=== PATIENT | female | born 1965 | race Asian ===

== ENCOUNTER 2016-10-30 17:34 | Emergency (ER) | payer BC ==
[~2016-10-30] VITALS: Ht 162.6 cm; Wt 74.9 kg
[~2016-10-30 17:34] MED LIST: ALBUAER2 INH; OXYC-57 PO; REVIEWED
[2016-10-30 17:36] VITALS: TEMP 36.6; Ht 162.6 cm; Wt 74.9 kg
--- NOTE | 2016-10-30 19:15 | EMERGENCY ROOM VISIT NOTE ---
History Report prepared by Michael: Ezra Rodriguez Under the Supervision of: Dr. Santo Urias M.D. First contact with patient: 18:59 Chief Complaint: GI ASSESSMENT Stated Complaint: GALLBLADDER PAIN Nursing Triage Summary: Pt reports pain in epigastric pain. Nausea since yesterday. Saw PCP today and had labwork for possible nisha. Similar sx approx 1 month ago. History of Present Illness The patient is a 51 year old female who presents to the Emergency Room with complaints of intermittent abdominal pain beginning yesterday. She notes she had abdominal pain yesterday and had dark colored urine. She called her PCP who referred her to the ER. She is not currently in any pain. She notes having similar symptoms 1 month ago along with elevated liver values. She tested negative for hepatitis at that time. She states she recently had an US which showed a lesion on her liver and the presence of gallstone. She admits to a history of asthma. Source of History: patient Onset: yesterday Position: abdomen Quality: other (abdominal pain) Timing: intermittent Associated Symptoms: + urinary symptoms (dark colored urine) Review of Systems See HPI for pertinent positives & negatives. A total of 10 systems reviewed and were otherwise negative. Past Medical & Surgical Medical Problems: (1) History of gallstones Family History No pertinent family history stated. Social History Smoking Status: Never Smoker Occupation Status: employed Current/Historical Medications Scheduled Oxycodone/Acetaminophen 5MG/325MG (Percocet 5MG/325MG), 1-2 TAB PO Q4-6HR PRN Miscellaneous Medications Albuterol (Ventolin), 2 PUFFS INH [Reviewed 12/16/07] Allergies Coded Allergies: No Known Allergies (Unverified Allergy, Mild, 03/28/07) Physical Exam Vital Signs Date Time Temp Pulse Resp B/P Pulse Ox O2 Delivery O2 Flow Rate FiO2 10/30/16 19:27 71 18 136/98 100 Room Air 10/30/16 17:36 36.6 81 18 140/82 100 Room Air Physical Exam CONSTITUTIONAL: Patient is in no acute distress. HEENT: No icterus, moist mucous membranes NECK: No meningismus, trachea is midline. CARDIOVASCULAR: Regular rate, normal perfusion RESPIRATORY: Unlabored breathing. Clear to auscultation. GASTROINTESTINAL: Non-tender GENITOURINARY: No flank tenderness MUSCULOSKELETAL: Full range of motion NEUROLOGIC: No acute gross focal deficits. PSYCHIATRIC: Normal affect SKIN: Normal for ethnicity. Medical Decision & Procedures ED Course 1902: Past medical records reviewed. The patient was evaluated in room A2. A complete history and physical examination was performed. 1930: Upon reexamination the patient is hemodynamically stable. I discussed results and treatment plan with the patient. She verbalizes agreement and understanding. The patient is ready for discharge. Medical Decision 51-year-old presents to the emergency department after phone call from her primary doctor regarding some testing results. Patient notes a history of intermittent epigastric pain mildly elevated LFTs and gallstones. She notes she has already had an ultrasound and a CAT scan. She emphasized she presently has no symptoms only came here the prompting of her primary care doctor. We discussed the pros and cons additional testing in the emergency room and in the end agreed that outpatient follow-up with general surgery is advised of this time. She denied further testing the emergency department and agrees to return for any worsening or worrisome symptoms. I requested case management help patient to facilitate follow-up with general surgery. Impression Primary Impression: Gallstones Scribe Attestation The scribe's documentation has been prepared under my direction and personally reviewed by me in its entirety. I confirm that the note above accurately reflects all work, treatment, procedures, and medical decision making performed by me. Departure Information Dispostion Home / Self-Care Referrals No Doctor, Assigned (PCP) Patient Instructions ED Epigastric Pain [facility], Gallstones, My [facility] Additional Instructions Follow-up with general surgeon. Return to ED for worsening or worrisome symptoms.
[2016-10-30 19:27] VITALS: BP 136/98; PULSE 71; O2SAT 100
[2016-11-08] MEDS ORDERED: CETI5TAB5 PO (13:58)
[2016-11-08] MEDS ORDERED: SYMIN160 INH (13:58)
[2016-11-08] MEDS ORDERED: PRLSR20 PO (13:58)
[2016-11-08] MEDS ORDERED: MONT1TAB3 PO (13:58)
[2016-11-16] MEDS ORDERED: OXYC-57 PO (10:36)
== END 2016-10-30 19:28 | disposition home or self-care (01) ==
LOC: C.EDB 17:34 → C.EDA 19:28
DX: K80.20 Calculus of gallbladder without cholecystitis without obstruction (principal); J45.909 Unspecified asthma, uncomplicated

== ENCOUNTER 2016-11-16 06:42 | Day surgery (SDC) | payer BC ==
[2016-11-08 13:59] VITALS: BMI 28.0
[~2016-11-16] VITALS: Ht 162.6 cm; Wt 73.6 kg
[~2016-11-16 06:42] MED LIST changes: +CEFAZOLIN 2000 MG/60 ML D5W IV SCH; +CETI5TAB5 PO; +LACTATED RINGER'S 1000ML 1,000 ML IV SCH; +MONT1TAB3 PO; -OXYC-57 PO; +PRLSR20 PO; -REVIEWED; +SYMIN160 INH
[2016-11-16] MEDS ORDERED: ACET-1256 PO (07:17)
[2016-11-16 07:18] VITALS: BP 136/81; PULSE 60; TEMP 36.7; O2SAT 100; Ht 162.6 cm; Wt 73.6 kg
[2016-11-16] MEDS ORDERED: SUCCINYLCHOLINE CHLORIDE 20 MG/ML 10 ML VIAL IV ONE (07:35)
[2016-11-16] MEDS ORDERED: ONDANSETRON INJ 2 MG/ML 2 ML VIAL ONE ×2 (07:35→09:03)
[2016-11-16] MEDS ORDERED: DEXAMETHASONE SOD INJ 4 MG/ML VIAL ONE ×2 (07:35→09:04)
[2016-11-16] MEDS ORDERED: GLYCOPYRROLATE INJ 0.2 MG/ML VIAL ONE (07:35)
[2016-11-16] MEDS ORDERED: EpHEDrine SULFATE INJ 50 MG/ML AMP ONE (07:35)
[2016-11-16] MEDS ORDERED: LIDOCAINE HCL 2% 2 ML VIAL (20MG/ML) ONE ×2 (07:35→09:03)
[2016-11-16] MEDS ORDERED: PHENYLEPHRINE HCL INJ 10 MG/ML VIAL ONE (07:35)
[2016-11-16] MEDS ORDERED: NEOSTIGMINE METHYLSULFATE 5 MG/5 ML SYR ONE (07:35)
[2016-11-16] MEDS ORDERED: PROPOFOL IV EMULSION 10 MG/ML 20 ML VIAL IV ONE ×2 (07:35→09:03)
[2016-11-16] MEDS ORDERED: FENTANYL CITRATE INJ 50 MCG/1 ML 2 ML VIAL ONE ×2 (07:35→09:04)
[2016-11-16] MEDS ORDERED: ROCURONIUM BROMIDE 10 MG/ML 5 ML VIAL ONE (07:35)
[2016-11-16] MEDS ORDERED: MIDAZOLAM HCL 1 MG/ML 2ML VIAL ONE (07:36)
[2016-11-16] MEDS ORDERED: ACETAMINOPHEN 1000 MG/100 ML IV IV ONE (07:42)
--- NOTE | 2016-11-16 08:27 | History & Physical Bridge Note ---
H&P Re-Evaluation Bridge Note: I have examined the patient, reviewed the History & Physical and in the interval since the performance of the History & Physical I have noted the following changes of clinical significance: pt has some RUQ pain yesterday, now pt has no abdominal pain, otherwise No changes noted
[2016-11-16] MEDS ORDERED: FLUMAZENIL 0.1 MG/1 ML 10 ML VIAL IV PRN (09:15)
[2016-11-16] MEDS ORDERED: MoRPHine SULFATE 10 MG/ML CARP/VIAL IV PRN (09:15)
[2016-11-16] MEDS ORDERED: MEPERIDINE HCL 25 MG/ML CARP IV PRN (09:15)
[2016-11-16] MEDS ORDERED: NALOXONE HCL 0.4 MG/1 ML VIAL/CARP IV PRN (09:15)
[2016-11-16] MEDS ORDERED: ONDANSETRON INJ 2 MG/ML 2 ML VIAL IV PRN (09:15)
[2016-11-16] MEDS ORDERED: LABETALOL HCL IV 5 MG/ML 20ML IV PRN (09:15)
[2016-11-16] MEDS ORDERED: EpHEDrine SULFATE INJ 50 MG/ML AMP IV PRN (09:15)
[2016-11-16] MEDS ORDERED: PHENYLEPHRINE 100MCG/ML 5ML SYR IV PRN (09:15)
[2016-11-16] MEDS ORDERED: ATROPINE SULFATE 0.1 MG/ML 5ML SYR IV PRN (09:15)
[2016-11-16] MEDS ORDERED: HYDROmorphone INJ 1 MG/ML SYR IV PRN (09:15)
[2016-11-16] MEDS ORDERED: MIX: LIDOCAINE 1% + MARCAINE 0.5% (50:50) INJ ONE (10:11)
[2016-11-16] MEDS ORDERED: BACITRACIN ZINC OINT TOP ONE (10:11)
--- NOTE | 2016-11-16 10:34 | [facility] Post Operative Brief Note ---
Immediate Operative Summary Operative Date Nov 16, 2016. Pre-Operative Diagnosis Cholecystitis, cholelithiasis Post-Operative Diagnosis Acute and Chronic Cholecystitis, Cholelithiasis Procedure(s) Performed Laparoscopic cholecystectomy Surgeon Dr. Harley Heart Specialist Surgeon(s) none Estimated Blood Loss 20 cc Findings acute cholecystitis, cholelithiasis Fluids (cc crystalloids) 1000ml Specimens A: gallbladder and contents Drains none Anesthesia general Complication(s) None Disposition Recovery Room / PACU
[2016-11-16] MEDS ORDERED: OXYC-57 PO (10:36)
--- NOTE | 2016-11-16 10:39 | Discharge Instructions ---
Discharge Instructions Visit Reason for Visit: Cholecystitis, Cholelithiasis Discharge Discharge Diagnosis / Problem: S/P laparoscopic cholecystectomy Discharge Goals Goal(s): Decrease discomfort, Improve function Activity Recommendations Activity Limitations: per Instructions/Follow-up section Lifting Limitations: no more than 25 pounds Exercise/Sports Limitations: gradually increase as tolerated May Resume Sexual Activity: when tolerated Shower/Bathe: may shower/bathe in 3 days Driving or Machine Use: resume 3 days after discharge Anesthesia . Post Anesthesia Instructions: If you have had General Anesthesia or IV Sedation: * Do not drive today. * Resume driving when surgeon permits. * Do not make important decisions or sign legal documents today. * Call surgeon for: 1. Temperature elevations greater than 101 degrees F. 2. Uncontrollable pain. 3. Excessive bleeding. 4. Persistent nausea and vomiting. 5. Medication intolerance (nausea, vomiting or rash). * For nausea and vomiting use only clear liquids such as: tea, soda, bouillon until nausea subsides, then gradually increase diet as tolerated. * If you have any concerns or questions, call your surgeon's office. If physician is unavailable and it is an emergency, call 911 or go to the nearest emergency room. . Instructions / Follow-Up Instructions / Follow-Up keep all dressing on for 4 days, she can take a shower on 11/20/2016, no driving while taking pain medicines. Follow up 1 week, . Diet Recommendations Recommended Home Diet: resume previous diet Procedures Procedures Performed: Laparoscopic cholecystectomy Pending Studies Studies pending at discharge: no Medical Emergencies . Who to Call and When: Medical Emergencies: If at any time you feel your situation is an emergency, please call 911 immediately. . Non-Emergent Contact Non-Emergency issues call your: Primary Care Provider Call Non-Emergent contact if: you have a fever, temperature is above 100.5, your pain is not controlled, your pain is worsening, wound has increased drainage, wound has increased redness . . "Provider Documentation" section prepared by Yunier Harley.
--- NOTE | 2016-11-16 10:59 | Anesthesiology Progress Note ---
Anesthesia Post Op Note Date & Time Nov 16, 2016 at 10:59 Vital Signs Pain Intensity: 2 Vital Signs Past 12 Hours Date Time Temp Pulse Resp B/P Pulse Ox O2 Delivery O2 Flow Rate FiO2 11/16/16 10:35 63 17 100 11/16/16 10:33 141/89 11/16/16 10:30 63 19 100 11/16/16 10:30 63 19 11/16/16 10:28 142/90 11/16/16 10:25 81 16 143/93 100 11/16/16 10:25 36.3 82 16 143/93 100 Mask 10 11/16/16 10:25 81 16 11/16/16 07:18 36.7 60 18 136/81 100 Room Air Notes Mental Status: alert / awake / arousable, participated in evaluation Pt Amnestic to Procedure: Yes Nausea / Vomiting: adequately controlled Pain: adequately controlled Airway Patency, RR, SpO2: stable & adequate BP & HR: stable & adequate Hydration State: stable & adequate Anesthetic Complications: no major complications apparent
[2016-11-16 11:30] VITALS: BP 129/65; PULSE 70; TEMP 36.5; O2SAT 99
--- NOTE | 2016-11-16 11:53 | OPERATIVE REPORT ---
DATE OF OPERATION: 11/16/2016 PREOPERATIVE DIAGNOSIS: Acute cholecystitis, cholelithiasis. POSTOPERATIVE DIAGNOSIS: Same. PROCEDURE: Laparoscopic cholecystectomy. SURGEON: Dr. Yunier Harley. ANESTHESIA: General. ESTIMATED BLOOD LOSS: About 20 mL. IV FLUIDS: 1000 mL. COMPLICATIONS: None. INDICATIONS FOR THE PROCEDURE: This is a 51-year-old female who presented with right upper quadrant pain for a couple months and patient had ultrasound showed acute cholecystitis with cholelithiasis. The patient required to do laparoscopic cholecystectomy, possible open, possible cholangiogram. I did talk to the patient about the benefit and risk alternate procedure. I indicated the risks may include but not limited such as bleeding, infection, injury to common bile duct, injury to bowel, DVT, myocardial infarction, stroke and even , incisional hernia. The patient understands. She signed informed consent and I answered all questions. OPERATION AND FINDINGS: DETAILS OF PROCEDURE: We brought the patient to the OR, put the patient in the supine position. The patient received SCD on bilateral legs to prevent DVT. Also, the patient received 2 grams Ancef IV for prophylactic antibiotic. The patient received general anesthesia without difficulty. The abdomen was prepped and draped in routine sterile fashion. After a timeout, I injected local anesthesia by using 1% lidocaine mixed with 0.5% Marcaine around umbilical area. I made a small incision just above umbilical, opened fascia and opened peritoneum under direct vision. I put a Amelia trocar in, connected to CO2 to create pneumoperitoneum. Flow rate is 6 liter per minute. Pressure not more than 14 mmHg. Once we got a nice pneumoperitoneum, we put a 10 mm camera in looked around the abdomen shows no more findings on the stomach, small bowel, large bowel, liver; however, there are omentum covering the gallbladder showing chronic cholecystitis. Then, we put another 3.5 mm trocar on the right upper quadrant. Once all trocars in I put grasper in to hold the base of the gallbladder, put direction of the diaphragm and then we put another grasper in to hold the pouch over the gallbladder, put the latter to expose the triangle of Calot. Once we peeled out all the omentum and then the cystic duct was identified and mobilized. Then I put two 5 mm metal clips on the proximal cystic duct, 1 on the distal cystic duct and used scissors to transection cystic duct. Cystic artery was identified and mobilized. Then I put two 5 mm metal clips on the proximal cystic artery, 1 on the distal artery and used scissor transection the cystic artery. Then we used Bovie to take down the gallbladder without difficulty. Rechecked no active bleeding, no leak, no bile leak. Then we removed the gallbladder through the catch bag. Then we reinserted Amelia trocar in, connected to CO2 to create pneumoperitoneum again looked around the abdomen. No active bleeding, no bile leak from the liver bed. No injury to bowel. Then we removed all trocars under direct vision. No active bleeding. The pneumoperitoneum was released. Then I closed the umbilical incision, fascial layer used #1 Vicryl [id number] x2, then we closed subcutaneous layer by using 2-0 Vicryl, closed skin by using 4-0 Vicryl, another 3.5 mm trocar site closed skin by using 4-0 Vicryl. Then we put the dressing on. The patient tolerated the procedure well. All the instrument, needle and sponge count correct x2 at the end of case. Specimen sent to pathology. The patient transferred to recovery room in stable condition. I attest to the content of the Intraoperative Record and any orders documented therein. Any exceptio ns are noted below.
[2016-11-16 12:00] VITALS: BP 135/75; PULSE 65; TEMP 36.7; O2SAT 97
[2016-11-16 12:29] VITALS: BP 140/79; PULSE 67; TEMP 36.5; O2SAT 97
[2016-11-17] MEDS ORDERED: CEFAZOLIN IV 2,000 MG/60 ML D5W IV ONE (06:00)
== END 2016-11-16 12:45 | disposition home or self-care (01) ==
LOC: C.ACU 06:42
PROVIDERS: ATTEND Surgery
DX: K80.10 Calculus of gallbladder with chronic cholecystitis without obstruction (principal); D25.9 Leiomyoma of uterus, unspecified; J45.909 Unspecified asthma, uncomplicated